=== PATIENT | female | born 1930 | race Caucasian/White ===

== ENCOUNTER 2017-04-06 16:04 | Observation (INO) | payer MEDICARE, OTHER ==
[~2017-04-06] VITALS: Ht 160 cm; Wt 55.0 kg
[~2017-04-06 16:04] MED LIST: ENOX40P SQ; KCL20 PO; LISI-360 PO; LORTA5 PO; Z.0.WALKERFRONT
[2017-04-06 16:16] VITALS: BP 163/71; TEMP 98.9
[2017-04-06] MEDS ORDERED: LISI10TA3 PO (16:21)
[2017-04-06 16:25] VITALS: BP 163/71; PULSE 88; RESP 18; TEMP 98.9; O2SAT 96
--- NOTE | 2017-04-06 16:36 | PD ---
HPI Chief Complaint: Fall Time Seen by Provider: 16:36 Travel History International Travel<30 days: No Contact w/Intl Traveler<30days: No Traveled to known affect area: No History of Present Illness HPI 86-year-old female presents to the emergency department via EMS on backboard with cervical collar in place after mechanical trip and fall in the kitchen. Patient states she tripped over an uneven tile in her kitchen and fell onto her buttocks. She denies hitting her head or loss of consciousness. Patient was vomiting on EMS and continued vomiting in the ER. She is also complaining of low back pain. Denies encopresis, incontinence, saddle anesthesias. Denies chest pain, shortness of breath, abdominal pain. Denies extremity pain or hip pain. Denies anticoagulant therapy. Denies paresthesias, loss of sensation, decreased range of motion to all extremities. Denies lightheadedness, dizziness , headache. Rates pain 5/10. Describes it as an ache. No known relieving factors. Aggravated with pressure and movement. Multiple allergies as listed on the chart. Primary care provider is Marta. History of hypertension and takes lisinopril. Has no other medical complaints. No other modifying factors or associated signs and symptoms. PFSH Past Medical History Arthritis: Yes (mild) Asthma: No Anxiety: No Depression: No Cancer: No Cardiovascular Problems: Yes Chemotherapy: No Chest Pain: No COPD: No Cerebrovascular Accident: No Diabetes: No Diminished Hearing: Yes Endocrine: No GERD: No Genitourinary: No Hiatal Hernia: Yes Hypertension: Yes Immune Disorder: No Musculoskeletal: Yes Neurologic: No Psychiatric: No Reproductive: No Respiratory: No Migraines: No Radiation Therapy: No Seizures: No Sickle Cell Disease: No Sleep Apnea: No Thyroid Disease: No Ulcer: No Influenza Vaccination: No ?: Not Menopausal: Yes Past Surgical History Abdominal Surgery: Yes (appendectomy, choleycystectomy) AICD: No Appendectomy: Yes Arteriovenous Shunt: No Cardiac Surgery: No Cholecystectomy: Yes Endocrine Surgery: No Eye Surgery: Yes (CATARACT) Gynecologic Surgery: Yes (hysterectomy) Hysterectomy: Yes Insulin Pump: No Joint Replacement: No Neurologic Surgery: No Oral Surgery: Yes (teeth pulled) Thoracic Surgery: No Tonsillectomy: Yes Other Surgery: Yes Social History Alcohol Use: No Tobacco Use: No Substance Use: No Allergies-Medications (Allergen,Severity, Reaction): Coded Allergies: meperidine (Unverified Allergy, Severe, Nausea/Vomiting, 04/06/17) morphine (Unverified Allergy, Severe, Nausea/Vomiting, 04/06/17) Sulfa (Sulfonamide Antibiotics) (Unverified Allergy, Unknown, Anaphylaxis , 04/06/17) codeine (Unverified Allergy, Unknown, 04/06/17) penicillin G (Unverified Allergy, Unknown, 04/06/17) sulfamethoxazole (Unverified Allergy, Unknown, 04/06/17) trimethoprim (Unverified Allergy, Unknown, 04/06/17) Reported Meds & Prescriptions Reported Meds & Active Scripts Active Reported Ergocalciferol 50,000 Unit Cap 50,000 Units PO Q7D Potassium Chloride ER (Potassium Chloride) 10 Meq Tab 10 Meq PO BID Pravastatin 10 Mg Tab 10 Mg PO DAILYHS Review of Systems Except as stated in HPI: all other systems reviewed are Neg Physical Exam Narrative GENERAL: Thin, elderly female patient, in no acute distress SKIN: Warm and dry. HEAD: Atraumatic. Normocephalic. No facial or scalp abrasions or lacerations noted. EYES: Pupils equal and round at 3 mm with brisk reaction. No scleral icterus. No injection or drainage. No raccoon eyes. No orbital tenderness on palpation bilaterally. ENT: Mucosa pink and moist. No erythema or exudates. No uvular edema. No uvular , palatal, or tonsillar deviation. Airway patent. Nares without nasal blood, purulent drainage or septal hematoma. No rhinorrhea. EARS: Bilateral pinnae and external canals appear within normal limits. Bilateral tympanic membranes without erythema, dullness, hemotympanum or perforation. No otorrhea. No escalante signs. NECK: Cervical collar in place. Trachea midline. No lymphadenopathy. No obvious deformities. CHEST: Nontender throughout without deformity or crepitance. No retractions or use of accessory muscles. CARDIOVASCULAR: Regular rate and rhythm. No murmur appreciated. RESPIRATORY: No accessory muscle use. Clear to auscultation. Breath sounds equal bilaterally. GASTROINTESTINAL: Abdomen soft, non-tender, nondistended. Hepatic and splenic margins not palpable. Bowel sounds are active 4 quadrants. Patient vomiting. MUSCULOSKELETAL: Full range of motion of bilateral lower extremities and no tenderness on abduction of bilateral hips. No tenderness on palpation of bilateral hips. Full range of motion of bilateral upper extremities. No tenderness on palpation to bilateral upper extremity sore lower extremities. Sensory intact all extremities. No obvious deformities. No clubbing. No cyanosis. No edema. BACK: Midline Point tenderness on palpation of the coccyx and lumbar; no midline tenderness on palpation of the thoracic spine. No obvious deformities. Patient sitting up in bed at 90. NEUROLOGICAL: Awake and alert. Oriented 3. No obvious cranial nerve deficits. Motor grossly within normal limits. Normal speech. Moves all extremities. 5/5 strength to all extremities. Sensory intact. PSYCHIATRIC: Appropriate mood and affect; insight and judgment normal. Data Data Last Documented VS Orders Orders Ct Brain W/O Iv Contrast(Rout) (04/06/17 ) Ct Cerv Spine W/O Contrast (04/06/17 ) Ondansetron Inj (Zofran Inj) (04/06/17 16:45) Iv Access Insert/Monitor (04/06/17 16:33) Ecg Monitoring (04/06/17 16:33) Oximetry (04/06/17 16:33) Sodium Chloride 0.9% Flush (Ns Flush) (04/06/17 16:45) Ct Lumb Spine W/O Contrast (04/06/17 ) Acetaminophen 1000 Mg/100 Ml (Ofirmev 10 (04/06/17 16:45) Complete Blood Count With Diff (04/06/17 17:19) Comprehensive Metabolic Panel (04/06/17 17:19) Prothrombin Time / Inr (Pt) (04/06/17 17:19) Act Partial Throm Time (Ptt) (04/06/17 17:19) Chest, Single Ap (04/06/17 17:19) Sodium Chlorid 0.9% 500 Ml Inj (Ns 500 M (04/06/17 18:30) Admit Order (Ed Use Only) (04/06/17 19:51) Labs Laboratory Tests Test 04/06/17 17:00 White Blood Count 9.3 TH/MM3 Red Blood Count 4.24 MIL/MM3 Hemoglobin 12.9 GM/DL Hematocrit 38.3 % Mean Corpuscular Volume 90.5 FL Mean Corpuscular Hemoglobin 30.5 PG Mean Corpuscular Hemoglobin Concent 33.7 % Red Cell Distribution Width 14.2 % Platelet Count 220 TH/MM3 Mean Platelet Volume 8.9 FL Neutrophils (%) (Auto) 59.8 % Lymphocytes (%) (Auto) 28.0 % Monocytes (%) (Auto) 8.5 % Eosinophils (%) (Auto) 2.6 % Basophils (%) (Auto) 1.1 % Neutrophils # (Auto) 5.5 TH/MM3 Lymphocytes # (Auto) 2.6 TH/MM3 Monocytes # (Auto) 0.8 TH/MM3 Eosinophils # (Auto) 0.2 TH/MM3 Basophils # (Auto) 0.1 TH/MM3 CBC Comment DIFF FINAL Differential Comment Prothrombin Time 11.4 SEC Prothromb Time International Ratio 1.1 RATIO Activated Partial Thromboplast Time 24.3 SEC Blood Urea Nitrogen 30 MG/DL Creatinine 1.11 MG/DL Random Glucose 91 MG/DL Total Protein 7.4 GM/DL Albumin 3.8 GM/DL Calcium Level 8.7 MG/DL Alkaline Phosphatase 119 U/L Aspartate Amino Transf (AST/SGOT) 24 U/L Alanine Aminotransferase (ALT/SGPT) 16 U/L Total Bilirubin 0.4 MG/DL Sodium Level 138 MEQ/L Potassium Level 4.2 MEQ/L Chloride Level 107 MEQ/L Carbon Dioxide Level 21.7 MEQ/L Anion Gap 9 MEQ/L Estimat Glomerular Filtration Rate 47 ML/MIN MDM Medical Decision Making Medical Screen Exam Complete: Yes Emergency Medical Condition: Yes Medical Record Reviewed: Yes Differential Diagnosis Fall, lumbar fracture, lumbar contusion, closed head injury, subarachnoid hemorrhage, vomiting Narrative Course 86-year-old female arrives via EMS on backboard with cervical collar in place after mechanical fall. Patient is complaining of low back pain. She is actively vomiting on arrival. IV site obtained. Zofran ordered. Patient denies hitting her head or loss of consciousness. Denies neck pain. CT head, CT cervical spine, CT lumbar spine ordered. CBC, CMP, coags, urinalysis, chest x-ray ordered. 1819: Denies nausea this time and says she feels much better. Discussed patient with Dr. Mark and she will be admitted for observation. 1828: Daughter at bedside. Dr. Mark spoke with [facility] for patient admission. Diagnosis Primary Impression: Fall Qualified Codes: W19.XXXA - Unspecified fall, initial encounter Additional Impressions: Vomiting Qualified Codes: R11.10 - Vomiting, unspecified Low back pain Qualified Codes: M54.5 - Low back pain Admitting Information Admitting Physician Requests: Observation Scripts Lisinopril (Lisinopril) 10 Mg Tab 20 MG PO DAILY for Blood Pressure Management, #30 TAB 0 Refills Prov: Jameson Fisher DO 04/07/17 Christelle Nicholas Apr 06, 2017 16:36
[2017-04-06 16:43] VITALS: O2SAT 96
[2017-04-06] MEDS ORDERED: SODIUM CHLORIDE 0.9% FLUSH 10 ML FLUSH IV FLUSH PRN ×2 (16:45→21:15)
[2017-04-06] MEDS ORDERED: ONDANSETRON HCL 4 MG/2 ML VIAL IV PUSH ONE (16:45)
[2017-04-06] MEDS ORDERED: ACETAMINOPHEN 1000 MG/100 ML 65 ML IV ONE (16:45)
--- NOTE | 2017-04-06 17:54 | RADRPT ---
EXAM DATE/TIME: 04/06/2017 17:32 [facility] COMPARISON: CT BRAIN W/O CONTRAST, October 31, 2014, 3:25. INDICATIONS : Fall earlier today, now vomiting. RADIATION DOSE: 56.35 CTDIvol (mGy) MEDICAL HISTORY : Hypertension. SURGICAL HISTORY : Appendectomy. Cholecystectomy.Hysterectomy. ENCOUNTER: Initial ACUITY: 1 day PAIN SCALE: 0/10 LOCATION: Bilateral cranial TECHNIQUE: Multiple contiguous axial images were obtained of the head. Using automated exposure control and adj ustment of the mA and/or kV according to patient size, radiation dose was kept as low as reasonably a chievable to obtain optimal diagnostic quality images. DICOM format image data is available electro nically for review and comparison. FINDINGS: CEREBRUM: The ventricles are prominent and out of proportion to the sulcal pattern however they are stable from the prior study. No evidence of midline shift, mass lesion, hemorrhage or acute infarction. No ext ra-axial fluid collections are seen. POSTERIOR FOSSA: The cerebellum and brainstem are intact. The 4th ventricle is midline. The cerebellopontine angle i s unremarkable. EXTRACRANIAL: The visualized portion of the orbits is intact. SKULL: The calvaria is intact. No evidence of skull fracture. CONCLUSION: 1. Stable ventriculomegaly. This can relate to more centralized form of atrophy but can also relate t o normal pressure hydrocephaly. 2. No acute intracranial abnormality. Jamse Espinosa Jr., MD on April 06, 2017 at 17:41 Board Certified Radiologist. This report was verified electronically.
--- NOTE | 2017-04-06 17:54 | RADRPT ---
EXAM DATE/TIME: 04/06/2017 17:35 [facility] COMPARISON: No previous studies available for comparison. INDICATIONS : Fall, neck pain. RADIATION DOSE: 28.09 CTDIvol (mGy) MEDICAL HISTORY : Hypertension. SURGICAL HISTORY : Appendectomy. Cholecystectomy.Hysterectomy. ENCOUNTER: Initial ACUITY: 1 day PAIN SCALE: 4/10 LOCATION: Bilateral neck TECHNIQUE: Volumetric scanning of the cervical spine was performed. Multiplanar reconstructions i n the sagittal, coronal and oblique axial planes were performed. Using automated exposure control a nd adjustment of the mA and/or kV according to patient size, radiation dose was kept as low as reason ably achievable to obtain optimal diagnostic quality images. DICOM format image data is available e lectronically for review and comparison. FINDINGS: The sagittal reconstructions demonstrate normal alignment and normal prevertebral soft tissues. The d ens is intact and there is a normal atlantoaxial relationship. Degenerative disc changes are present at the C5-6 and C6-7 levels. Degenerative changes are also noted involving the atlantoaxial joint. Th ere is mild osteopenia. The axial images demonstrate that the vertebral bodies and posterior elements are intact. The soft ti ssues are within normal limits. There is no evidence of acute fracture or malalignment. CONCLUSION: Negative trauma CT. Goran Fowler MD on April 06, 2017 at 17:50 Board Certified Radiologist. This report was verified electronically.
[2017-04-06 17:58] LABS: ALBUMIN 3.8 GM/DL (3.4-5.0); ALT (GPT) 16 U/L (10-53); AST (GOT) 24 U/L (15-37); BICARBONATE 21.7 MEQ/L (21.0-32.0); BLOOD UREA NITROGEN 30 MG/DL (7-18); CALCIUM 8.7 MG/DL (8.5-10.1); CHLORIDE 107 MEQ/L (98-107); CREATININE 1.11 MG/DL (0.50-1.00); GLOMERULAR FILTRATION RATE 47 ML/MIN (>89); GLUCOSE,RANDOM 91 MG/DL (74-106); SODIUM (NA) 138 MEQ/L (136-145)
[2017-04-06 18:00] VITALS: BP 115/68; PULSE 85; RESP 19; O2SAT 95
[2017-04-06 18:00] LABS: ALKALINE PHOSPHATASE 119 U/L (45-117); TOTAL BILIRUBIN ADULT 0.4 MG/DL (0.2-1.0); TOTAL PROTEIN 7.4 GM/DL (6.4-8.2)
[2017-04-06 18:02] LABS: INTERNATIONAL NORMALIZED RATIO 1.1 RATIO; PROTHROMBIN TIME - PATIENT 11.4 SEC (9.8-11.6)
[2017-04-06 18:05] LABS: AUTOMATED NEUTROPHIL # 5.5 TH/MM3 (1.8-7.7); BASOPHIL # 0.1 TH/MM3 (0-0.2); BASOPHIL % 1.1 % (0.0-2.0); EOSINOPHIL # 0.2 TH/MM3 (0-0.4); EOSINOPHIL % 2.6 % (0.0-4.0); HEMATOCRIT 38.3 % (35.0-46.0); HEMOGLOBIN 12.9 GM/DL (11.6-15.3); LYMPHOCYTE # 2.6 TH/MM3 (1.0-4.8); MEAN CELL VOLUME 90.5 FL (80.0-100.0); MEAN CORPUSCULAR HEMOGLOBIN 30.5 PG (27.0-34.0); MEAN CORPUSCULAR HGB CONC 33.7 % (32.0-36.0); MEAN PLATELET VOLUME 8.9 FL (7.0-11.0); MONO % 8.5 % (0.0-8.0); MONOCYTE # 0.8 TH/MM3 (0-0.9); NEUT % 59.8 % (16.0-70.0); PLATELET COUNT 220 TH/MM3 (150-450); RED BLOOD COUNT 4.24 MIL/MM3 (4.00-5.30); RED CELL DISTRIBUTION WIDTH 14.2 % (11.6-17.2); WHITE BLOOD COUNT 9.3 TH/MM3 (4.0-11.0)
--- NOTE | 2017-04-06 18:14 | RADRPT ---
EXAM DATE/TIME: 04/06/2017 17:56 [facility] COMPARISON: No previous studies available for comparison. INDICATIONS : Short of breath, vomiting. MEDICAL HISTORY : Hypertension. SURGICAL HISTORY : None. ENCOUNTER: Initial ACUITY: 1 day PAIN SCORE: 0/10 LOCATION: Bilateral chest FINDINGS: A single view of the chest demonstrates the lungs to be symmetrically aerated without evidence of mas s, infiltrate or effusion. The cardiomediastinal contours are unremarkable. Degenerative changes and scoliosis of the thoracic spine are noted. CONCLUSION: 1. No acute cardiopulmonary disease. 2. Degenerative changes and scoliosis of the thoracic spine. Kenrick Paige MD on April 06, 2017 at 18:09 Board Certified Radiologist. This report was verified electronically.
--- NOTE | 2017-04-06 18:24 | RADRPT ---
EXAM DATE/TIME: 04/06/2017 17:41 [facility] COMPARISON: PELVIS AP ONLY, October 31, 2014, 3:04. HIP LEFT DURING OR PROCEDURE, October 31, 2014, 17:33. INDICATIONS : Fall, lower back pain. RADIATION DOSE: 17.43 CTDIvol (mGy) MEDICAL HISTORY : Hypertension. SURGICAL HISTORY : Appendectomy. Cholecystectomy.Hysterectomy. ENCOUNTER: Initial ACUITY: 1 day PAIN SCALE: 6/10 LOCATION: lower back TECHNIQUE: Volumetric scanning of the lumbar spine was performed. Multiplanar reconstructions in the sagittal, coronal and oblique axial planes were performed. Using automated exposure control and adjustment of the mA and/or kV according to patient size, radiation dose was kept as low as reasonably achievable t o obtain optimal diagnostic quality images. DICOM format image data is available electronically for review and comparison. FINDINGS: There is evidence of a chronic compression deformity involving L1 was noted in November 2013. No acu te compression fracture is noted within the lumbar spine. Diffuse degenerative disc disease is noted at all levels and is most severe at L2-3, L3-4, and L4-5. Scoliosis of the lumbar spine is noted. Mil d spinal stenosis is noted at L1-2 and L2-3. Mild to moderate spinal stenosis is noted at L3-4 and L4 -5. A left lateral focal disc bulge is noted at L3-4 and extends into the region of the left lateral recess and may impinge upon the left L4 nerve root. Moderate left neural foraminal narrowing is noted at L2-3 and L3-4. Moderate right neuroforaminal narrowing is noted at L5-S1. Sclerotic and lytic bon y changes involving the sacrum are nonspecific. Outpatient bone scan may be helpful for further evalu ation if clinically indicated. CONCLUSION: 1. No acute fracture, spondylolisthesis or spondylolysis. 2. Chronic compression deformity involving L1. 3. Multilevel foraminal narrowing and spinal stenoses as described above. Sclerotic and lytic bony ch anges involving the sacrum which are nonspecific. Outpatient bone scan may be helpful for further da luation if clinically indicated. 4. Scoliosis of the lumbar spine. 5. Multilevel degenerative disc disease. Kenrick Paige MD on April 06, 2017 at 18:11 Board Certified Radiologist. This report was verified electronically.
[2017-04-06] MEDS ORDERED: SODIUM CHLORID 0.9% 500 ML INJ 500 ML IV ONE (18:30)
[2017-04-06] MEDS ORDERED: POTA10TA2 PO (19:14)
[2017-04-06] MEDS ORDERED: VITA1000 PO (19:14)
[2017-04-06] MEDS ORDERED: PRAV10TA PO (19:14)
[2017-04-06] MEDS ORDERED: VITA500012 PO ×2 (19:17)
[2017-04-06] MEDS ORDERED: PRAVASTATIN SOD 10 MG TAB PO SCH (21:15)
[2017-04-06] MEDS ORDERED: BISACODYL 10 MG SUPP RECTAL PRN (21:15)
[2017-04-06] MEDS ORDERED: MAGNESIUM HYDROXIDE SUSP 30 ML CUP PO PRN (21:15)
[2017-04-06] MEDS ORDERED: NALOXONE HCL 0.4 MG/ML AMP IV PUSH PRN (21:15)
[2017-04-06] MEDS ORDERED: ACETAMINOPHEN 325 MG TAB PO PRN (21:15)
[2017-04-06] MEDS ORDERED: ONDANSETRON HCL 4 MG/2 ML VIAL IVP PRN (21:15)
[2017-04-06] MEDS ORDERED: LACTULOSE SYRUP 20 GM/30 ML CUP PO PRN (21:15)
[2017-04-06] MEDS ORDERED: SENNOSIDES 8.6 MG TAB PO PRN (21:15)
--- NOTE | 2017-04-06 22:01 | HHI.HP ---
[facility] Primary Care Physician Unknown Admission Diagnosis slip and fall, intractable nausea and vomiting Diagnoses: Travel History International Travel<30 Days: No Contact w/Intl Traveler <30 Da: No Traveled to Known Affected Are: No History of Present Illness 86-year-old female with a past medical history significant for hypertension and hyperlipidemia presents to the emergency department after suffering a fall. The patient was walking from her bathroom to the kitchen when she slipped on the tile and fell on her butt. She reports she fell with full force. She denies any head trauma. Denies loss of consciousness or syncopal episode. EMS was called and in the ambulance ride the patient developed severe, intractable vomiting. During her time in the emergency department she continued to have approximately 30 episodes of emesis. She has since stopped vomiting and reports that she feels well. Her daughter, who has accompanied her, states that she has motion sickness and that this is a common occurrence for the patient. Review of Systems Except as stated in HPI: all other systems reviewed are Neg Past Family Social History Past Medical History Hypertension Hyperlipidemia Past Surgical History Tonsillectomy Appendectomy Cholecystectomy Hysterectomy Left hip repair Reported Medications Reported Meds & Active Scripts Active Reported Ergocalciferol 50,000 Unit Cap 50,000 Units PO Q7D Potassium Chloride ER (Potassium Chloride) 10 Meq Tab 10 Meq PO BID Pravastatin 10 Mg Tab 10 Mg PO DAILYHS Lisinopril 10 Mg Tab 20 Mg PO BID Allergies: Coded Allergies: meperidine (Unverified Allergy, Severe, Nausea/Vomiting, 04/06/17) morphine (Unverified Allergy, Severe, Nausea/Vomiting, 04/06/17) Sulfa (Sulfonamide Antibiotics) (Unverified Allergy, Unknown, Anaphylaxis , 04/06/17) codeine (Unverified Allergy, Unknown, 04/06/17) penicillin G (Unverified Allergy, Unknown, 04/06/17) sulfamethoxazole (Unverified Allergy, Unknown, 04/06/17) trimethoprim (Unverified Allergy, Unknown, 04/06/17) Family History Negative for CAD/DM Social History Denies alcohol, tobacco and illicit drugs Physical Exam Vital Signs Vital Signs Date Time Temp Pulse Resp B/P (MAP) Pulse Ox O2 Delivery O2 Flow Rate FiO2 04/06/17 19:10 (84) Room Air 04/06/17 18:00 85 19 115/68 (84) 95 Room Air 04/06/17 16:44 95 Room Air 04/06/17 16:43 96 Room Air 04/06/17 16:25 98.9 88 18 163/71 (101) 96 Physical Exam GENERAL: female sitting up in bed SKIN: No rashes, ecchymoses or lesions. Cool and dry. HEAD: Atraumatic. Normocephalic. No temporal or scalp tenderness. EYES: Pupils equal round and reactive. Extraocular motions intact. No scleral icterus. No injection or drainage. ENT: Nose without bleeding, purulent drainage or septal hematoma. Throat without erythema, tonsillar hypertrophy or exudate. Uvula midline. Airway patent. NECK: Trachea midline. No JVD or lymphadenopathy. Supple, nontender, no meningeal signs. CARDIOVASCULAR: Regular rate and rhythm without murmurs, gallops, or rubs. RESPIRATORY: Clear to auscultation. Breath sounds equal bilaterally. No wheezes , rales, or rhonchi. GASTROINTESTINAL: Abdomen soft, non-tender, nondistended. No hepato-splenomegaly , or palpable masses. No guarding. MUSCULOSKELETAL: Extremities without clubbing, cyanosis, or edema. No joint tenderness, effusion, or edema noted. No calf tenderness. NEUROLOGICAL: Awake and alert. Cranial nerves II through XII intact. Motor and sensory grossly within normal limits. Normal speech. Laboratory Laboratory Tests Test 04/06/17 17:00 White Blood Count 9.3 Red Blood Count 4.24 Hemoglobin 12.9 Hematocrit 38.3 Mean Corpuscular Volume 90.5 Mean Corpuscular Hemoglobin 30.5 Mean Corpuscular Hemoglobin Concent 33.7 Red Cell Distribution Width 14.2 Platelet Count 220 Mean Platelet Volume 8.9 Neutrophils (%) (Auto) 59.8 Lymphocytes (%) (Auto) 28.0 Monocytes (%) (Auto) 8.5 Eosinophils (%) (Auto) 2.6 Basophils (%) (Auto) 1.1 Neutrophils # (Auto) 5.5 Lymphocytes # (Auto) 2.6 Monocytes # (Auto) 0.8 Eosinophils # (Auto) 0.2 Basophils # (Auto) 0.1 CBC Comment DIFF FINAL Differential Comment Prothrombin Time 11.4 Prothromb Time International Ratio 1.1 Activated Partial Thromboplast Time 24.3 Blood Urea Nitrogen 30 Creatinine 1.11 Random Glucose 91 Total Protein 7.4 Albumin 3.8 Calcium Level 8.7 Alkaline Phosphatase 119 Aspartate Amino Transf (AST/SGOT) 24 Alanine Aminotransferase (ALT/SGPT) 16 Total Bilirubin 0.4 Sodium Level 138 Potassium Level 4.2 Chloride Level 107 Carbon Dioxide Level 21.7 Anion Gap 9 Estimat Glomerular Filtration Rate 47 Result Diagram: 04/06/17169904/06/171699 Caprini VTE Risk Assessment Caprini VTE Risk Assessment: Mod/High Risk (score >= 2) Caprini Risk Assessment Model Point Value = 1 Point Value = 2 Point Value = 3 Point Value = 5 Age 41-60 Minor surgery BMI > 25 kg/m2 Swollen legs Varicose veins or History of unexplained or recurrent spontaneous Oral contraceptives or hormone replacement Sepsis (< 1 month) Serious lung disease, including pneumonia (< 1 month) Abnormal pulmonary function Acute myocardial infarction Congestive heart failure (< 1 month) History of inflammatory bowel disease Medical patient at bed rest Age 61-74 Arthroscopic surgery Major open surgery (> 45 min) Laparoscopic surgery (> 45 min) Malignancy Confined to bed (> 72 hours) Immobilizing plaster cast Central venous access Age >= 75 History of VTE Family history of VTE Factor V Leiden Prothrombin [id number] Lupus anticoagulant Anticardiolipin antibodies Elevated serum homocysteine Heparin-induced thrombocytopenia Other congenital or acquired thrombophilia Stroke (< 1 month) Elective arthroplasty Hip, pelvis, or leg fracture Acute spinal cord injury (< 1 month) Prophylaxis Regimen Total Risk Factor Score Risk Level Prophylaxis Regimen 0-1 Low Early ambulation 2 Moderate Order ONE of the following: *Sequential Compression Device (SCD) *Heparin 5000 units SQ BID 3-4 Higher Order ONE of the following medications: *Heparin 5000 units SQ TID *Enoxaparin/Lovenox 40 mg SQ daily (WT < 150 kg, CrCl > 30 mL/min) *Enoxaparin/Lovenox 30 mg SQ daily (WT < 150 kg, CrCl > 10-29 mL/min) *Enoxaparin/Lovenox 30 mg SQ BID (WT < 150 kg, CrCl > 30 mL/min) AND/OR *Sequential Compression Device (SCD) 5 or more Highest Order ONE of the following medications: *Heparin 5000 units SQ TID (Preferred with Epidurals) *Enoxaparin/Lovenox 40 mg SQ daily (WT < 150 kg, CrCl > 30 mL/min) *Enoxaparin/Lovenox 30 mg SQ daily (WT < 150 kg, CrCl > 10-29 mL/min) *Enoxaparin/Lovenox 30 mg SQ BID (WT < 150 kg, CrCl > 30 mL/min) AND *Sequential Compression Device (SCD) Assessment and Plan Assessment and Plan Assessment/plan: 1. Intractable nausea/vomiting status post mechanical fall Resolved Zofran when necessary Head CT without acute process By mouth challenge Admitted for observation and if symptoms do not return anticipate discharge in the morning 2. Hypertension/hyperlipidemia Continue home medications FEN Heart healthy diet Electrolytes: monitor and replete prn Heparin Shannan Almanza MD Apr 06, 2017 22:01
[2017-04-06 23:15] VITALS: BP 117/57; PULSE 77; RESP 17; TEMP 98.1; O2SAT 96
[2017-04-06] MEDS: HEPARIN SODIUM - SQ 10,000 UNITS/ML VIAL SQ SCH (23:45)
[2017-04-07 03:44] VITALS: BP 129/66; PULSE 78; RESP 16; TEMP 98.5; O2SAT 97
[2017-04-07] MEDS: HEPARIN SODIUM - SQ 10,000 UNITS/ML VIAL SQ SCH (05:23)
[2017-04-07 05:25] LABS: AUTOMATED NEUTROPHIL # 6.4 TH/MM3 (1.8-7.7); BASOPHIL # 0.1 TH/MM3 (0-0.2); BASOPHIL % 0.6 % (0.0-2.0); EOSINOPHIL % 0.4 % (0.0-4.0); HEMATOCRIT 34.6 % (35.0-46.0); HEMOGLOBIN 11.7 GM/DL (11.6-15.3); LYMPH % 19.5 % (9.0-44.0); LYMPHOCYTE # 1.7 TH/MM3 (1.0-4.8); MEAN CELL VOLUME 88.6 FL (80.0-100.0); MEAN CORPUSCULAR HGB CONC 33.9 % (32.0-36.0); MEAN PLATELET VOLUME 9.5 FL (7.0-11.0); MONOCYTE # 0.7 TH/MM3 (0-0.9); NEUT % 71.5 % (16.0-70.0); PLATELET COUNT 187 TH/MM3 (150-450); RED BLOOD COUNT 3.91 MIL/MM3 (4.00-5.30); RED CELL DISTRIBUTION WIDTH 14.1 % (11.6-17.2)
[2017-04-07 05:42] LABS: BICARBONATE 24.5 MEQ/L (21.0-32.0); CALCIUM 8.5 MG/DL (8.5-10.1); CREATININE 1.01 MG/DL (0.50-1.00)
[2017-04-07 07:35] VITALS: BP 143/91; PULSE 97; RESP 20; TEMP 97.6; O2SAT 97
[2017-04-07] MEDS ORDERED: SODIUM CHLORIDE 0.9% FLUSH 10 ML FLUSH IV FLUSH SCH (09:00)
[2017-04-07] MEDS ORDERED: LISINOPRIL 10 MG TAB PO SCH (09:00)
[2017-04-07] MEDS ORDERED: POTASSIUM CHLORIDE 10 MEQ CONTROLLED RELEASE TAB PO SCH (09:00)
[2017-04-07] MEDS ORDERED: LISI10TA3 PO (10:23)
--- NOTE | 2017-04-07 10:24 | HHI.PR ---
Subjective Remarks Follow up for slip and fall. Currently doing well. Wants to go home. Ambulating well. No fever, chills. Objective Vitals Vital Signs Date Time Temp Pulse Resp B/P (MAP) Pulse Ox O2 Delivery O2 Flow Rate FiO2 04/07/17 07:35 97.6 97 20 143/91 (108) 97 04/07/17 03:44 98.5 78 16 129/66 (87) 97 04/06/17 23:15 98.1 77 17 117/57 (77) 96 04/06/17 19:10 (84) Room Air 04/06/17 18:00 85 19 115/68 (84) 95 Room Air 04/06/17 16:44 95 Room Air 04/06/17 16:43 96 Room Air 04/06/17 16:25 98.9 88 18 163/71 (101) 96 I/O 04/06/17 04/06/17 04/06/17 04/07/17 04/07/17 04/07/17 07:00 15:00 23:00 07:00 15:00 23:00 Intake Total 565 ml 240 ml Balance 565 ml 240 ml Intake Oral 240 ml IV Total 565 ml # Voids 1 Result Diagram: 04/07/17 0439 04/07/17 0439 Imaging Last Impressions Chest X-Ray 04/06/17 1719 Signed Impressions: Service Date/Time: April 17:56 - CONCLUSION: 1. No acute cardiopulmonary disease. 2. Degenerative changes and scoliosis of the thoracic spine. Kenrick Paige MD Lumbar Spine CT 04/06/17 0000 Signed Impressions: Service Date/Time: April 17:41 - CONCLUSION: 1. No acute fracture, spondylolisthesis or spondylolysis. 2. Chronic compression deformity involving L1. 3. Multilevel foraminal narrowing and spinal stenoses as described above. Sclerotic and lytic bony changes involving the sacrum which are nonspecific. Outpatient bone scan may be helpful for further evaluation if clinically indicated. 4. Scoliosis of the lumbar spine. 5. Multilevel degenerative disc disease. Kenrick Paige MD Head CT 04/06/17 0000 Signed Impressions: Service Date/Time: April 17:32 - CONCLUSION: 1. Stable ventriculomegaly. This can relate to more centralized form of atrophy but can also relate to normal pressure hydrocephaly. 2. No acute intracranial abnormality. James Espinosa Jr., MD Cervical Spine CT 04/06/17 0000 Signed Impressions: Service Date/Time: April 17:35 - CONCLUSION: Negative trauma CT. Goran Fowler MD Objective Remarks GENERAL: Alert, Oriented x 3, NAD. SKIN: Warm and dry. HEAD: Normocephalic. EYES: No scleral icterus. No injection or drainage. NECK: Supple, trachea midline. No JVD or lymphadenopathy. CARDIOVASCULAR: Regular rate and rhythm without murmurs, gallops, or rubs. RESPIRATORY: Breath sounds equal bilaterally. No accessory muscle use. GASTROINTESTINAL: Abdomen soft, non-tender, nondistended. MUSCULOSKELETAL: No cyanosis, or edema. BACK: Nontender without obvious deformity. No CVA tenderness. Procedures None. A/P Problem List: (1) Fall ICD Code: W19.XXXA - Unspecified fall, initial encounter (2) HTN (hypertension) ICD Code: I10 - Essential (primary) hypertension Assessment and Plan 86-year-old female with a past medical history significant for hypertension and hyperlipidemia presents to the emergency department after suffering a fall. Fall - Daughter is at bedside. Patient is currently doing well. - Ambulating well, wants to go home. HTN - continue Lisinopril 20mg Qday (reduced from 20mg BID). Full code. Discharge patient to home Condition on discharge: Improved Regular Diet as tolerated Ad Dayanara activity Rx written: - Reduce lisinopril from 20mg BID to 20mg Qday. Follow-up with primary care physician Jameson Fisher DO Apr 07, 2017 10:24 am
== END 2017-04-07 11:02 | disposition home or self-care (01) ==
LOC: NEPD 16:04 → NEDA 19:52 → NEPFCDU 22:13
PROVIDERS: ADMIT Hospitalist; ATTEND Hospitalist
DX: M54.5 Low back pain (principal); W01.0XXA Fall on same level from slipping, tripping and stumbling without subsequent striking against object, initial encounter; Y92.000 Kitchen of unspecified non-institutional (private) residence as the place of occurrence of the external cause; R11.2 Nausea with vomiting, unspecified; I10 Essential (primary) hypertension; M19.90 Unspecified osteoarthritis, unspecified site; E78.5 Hyperlipidemia, unspecified; M85.80 Other specified disorders of bone density and structure, unspecified site; M41.9 Scoliosis, unspecified; M51.36 Other intervertebral disc degeneration, lumbar region
CPT/HCPCS: 70450; 71045; 72125; 72131; 80048; 80053; 85025; 85610; 85730; 96361; 96365; 96372; 96375; 97162; 99285; G0378; G8987; G8988; J0131; J1644; J2405; J7040